=== PATIENT | female | born 1975 | race Caucasian/White ===

== ENCOUNTER 2023-09-06 18:44 | Inpatient (IN) ==
--- NOTE | 2023-09-06 18:52 | ED Triage Note ---
Date of Service September 06, 2023 Provider in Triage Author: Aixa Worley History of Present Illness This patient was briefly evaluated while in triage. An abbreviated physical exam was performed. This patient is a 47-year-old Female who presents to the ED for evaluation of palpitations. Pt. states 7-8 years ago, had similar symptoms. Notes "my heart rate has been irregular and fast." States these evening, approximately 1 hour ago, developed palpitations and felt that her heart rate was too fast. States she is feeling lightheaded. States she was given medication to help when this happens, but the medication is . Did see digital performance analyst 8 years ago. Believes medication to have been metoprolol and another but uncertain of the name. Physical Exam VITALS: Vitals are noted on the nurse's note and reviewed by myself. GENERAL: This is a 47 year old female, in no acute distress, nondiaphoretic, well-developed well-nourished. SKIN: No obvious rashes, edema, erythema HEAD: Normocephalic atraumatic. EYES: Conjunctivae without injection, sclerae without icterus. NECK: No JVD. LUNGS: No retractions or accessory muscle use. MUSCULOSKELETAL: Normal gait. NEURO: Patient was alert and oriented to person place and time. No focal neurological deficits. Initial orders for labs and / or imaging were placed and patient was placed in the waiting area until a bed is available. Please see further documentation for the full ED course.
[2023-09-06] MEDS: dilTIAZem HCl 5 MG/ML 5 ML VIAL IV ONE ×2 (19:19→19:31)
[2023-09-06] MEDS: SODIUM CHLORIDE 0.9% 1,000 ML IV STA (19:20)
[2023-09-06] MEDS: LORazepam 1 MG TAB SL STA (19:30)
[2023-09-06] MEDS: ASPIRIN 81 MG CHEW PO STA (19:30)
[2023-09-06] MEDS: dilTIAZem HCl 5 MG/ML 5 ML VIAL IV STA ×2 (19:30→19:31)
[2023-09-06] MEDS: LORazepam 1 MG TAB ONE (19:32)
[2023-09-06 19:37] LABS: Basophils # (auto) 0.05 K/uL (0.00-0.20); Basophils % (auto) 0.5 %; Eosinophils # (auto) 0.09 K/uL (0.00-0.50); Hematocrit (blood only) 46.5 % (37.0-47.0); Hemoglobin 15.8 g/dl (12.0-16.0); Immature Granulocytes # (auto) 0.04 K/uL (0.01-0.20); Immature Granulocytes % (auto) 0.4 %; Lymphocytes # (auto) 3.41 K/uL (1.20-3.40); Lymphocytes % (auto) 37.3 %; Mean Corpuscular Hemoglobin 31.2 pg (25.0-34.0); Mean Corpuscular Volume 91.7 fL (80.0-100.0); Mean Platelet Volume 8.7 fL (9.4-12.4); Monocytes # (auto) 0.86 K/uL (0.11-0.59); Monocytes % (auto) 9.4 %; Neutrophils # (auto) 4.69 K/uL (1.40-6.50); Neutrophils % (auto) 51.4 %; Platelet Count 355 K/uL (130-400); RDW Coefficient of Variation 12.5 % (11.5-14.5); RDW Standard Deviation 41.8 fL (36.4-46.3); Red Blood Count 5.07 M/uL (4.20-5.40); White Blood Count 9.14 K/ul (4.8-10.8)
[2023-09-06 19:43] LABS: Appearance Urine Clear (Clear); Bacteria Urine Automated Negative (Negative); Bilirubin Urine Negative (Negative); Blood Urine 1+ (Negative); Cast Urine Automated 0 /lpf (0-5); Color Urine Yellow; Epithelial Cell Urine Auto 0-5 /lpf (0-5); Glucose Urine UA Negative (Negative); Ketones Urine Negative (Negative); Leukocyte Esterase Urine Negative (Negative); Nitrite Urine Negative (Negative); Protein Urine Negative (Negative); RBC Urine Automated 0-4 /hpf (0-4); Specific Gravity Urine 1.004 (1.000-1.030); Urobilinogen Urine Negative (Negative); WBC Urine Automated 0 /hpf (0-5)
[2023-09-06] MEDS: dilTIAZem HCL 125 MG in DEXTROSE 5% 100 ML IV SCH (19:52)
[2023-09-06 19:55] LABS: Albumin Globulin Ratio 1.5 (0.9-2); Albumin Level 4.8 gm/dl (3.4-5.0); BUN Creatinine Ratio 12.5 (10-20); Bilirubin,Total 1.1 mg/dl (0.2-1.0); Calcium 9.8 mg/dl (8.6-10.3); Creatinine Clr Calc Pharmacy 77.2 ml/min; Est GFR (African American) 82.2 ml/min; Est GFR (Non-African American) 70.9 ml/min; Globulin 3.1 gm/dl (2.5-4.0); Magnesium 2.1 mg/dl (1.7-2.4); Potassium 3.8 mmol/L (3.5-5.1); Total Protein 7.9 gm/dl (6.0-8.3)
[2023-09-06 19:57] LABS: Pregnancy Test, Serum Negative (Negative)
[2023-09-06 20:01] LABS: Troponin I High Sensitivity 5.5 pg/ml (0-14)
[2023-09-06 20:05] LABS: D Dimer < 190 ug/L FEU (0-500); Partial Thromboplastin Ratio 1.1; Partial Thromboplastin Time 32 Seconds (21-31)
[2023-09-06 20:10] LABS: Thyroid Stimulating Hormone 1.11 uIu/ml (0.300-4.500)
--- NOTE | 2023-09-06 22:08 | Emergency Department Note ---
History of Present Illness General Chief Complaint: Arrhythmia/Palpitations Stated Complaint: HEART ISSUES, Time Seen by Provider: 09/06/23 19:10 History of Present Illness Provider Complaint: + rapid heart beat and + palpitations Onset (ago): 1 day(s) Duration: + Constant Severity: similar to previous episodes Context: + occurred during rest and + other (Patient reports she has been under a lot of); no recent drug use Arrhythmia history: + atrial fibrillation (Remote history 8 years ago. Not on any medications for. Was prescribed metoprolol in case it ever occurred again but never used in the last 8 years ago.); no on anti-coagulants Associated symptoms: + near-syncope; no chest pain, no shortness of breath, no syncope, no nausea, no vomiting, no anxiety, no diaphoresis or no cough Home Medications Medication Instructions Recorded Confirmed Type levonorgestrel 21 mcg/24 hours (8 1 device intrauterine UD 06/05/19 09/06/23 History yrs) 52 mg intrauterine device (Mirena) Allergies Allergy/AdvReac Type Severity Reaction Status Date / Time No Known Allergies Allergy Verified 08/22/19 11:48 Past Med/Surg History Medical History (Updated 09/06/23 @ 22:49 by Serjio Dickson MD) History of atrial fibrillation X 1 EPISODE 2016 - followed w/ Dr. Sood x 1 year and then discharged; no issues since. believes r/t stress. no current medications Lipoma Surgical History S/P wisdom tooth extraction Family History Father Atrial fibrillation Other No family history of adverse response to anesthesia Denies family history of Ovarian cancer Breast cancer Colorectal cancer Uterine cancer Social History Smoking Status: Never smoker Second Hand Exposure: No; Do You Dip or Chew Tobacco: No; Hx Alcohol Use: Yes Hx Substance Use: No Preferred Language: Hong Konger Communication Ability: Effective Regulatory Scientist Required: No Beliefs That Will Affect Care: None marital status: Current Living Situation: Spouse current occupational status: employed current occupation: [employer] Feels Safe at Home: Yes Diet: regular Assistive Devices: None Physical Exam 2 Vital Signs: Vital Signs - 24 hr 09/06/23 18:50 09/06/23 19:22 09/06/23 19:40 Temperature 36.6 C Temperature Source Temporal Artery Sc an Pulse Rate 83 171 H Pulse Rate [Apical ] Respiratory Rate 18 Respiratory Effort / Characteristics Non-Labored Sponta neous Respiratory Depth Normal Respiratory Patter n Regular Blood Pressure 116/67 Blood Pressure [Ri ght Arm] Blood Pressure Bernadette n 83 Blood Pressure Bernadette n [Right Arm] Blood Pressure Pos ition Sitting Pulse Oximetry 99 Oxygen Delivery Me thod Room Air Room Air Oxygen Flow Rate 96 Sepsis Recent Feve r Within 48 Hours No Sepsis New/Unexpla ined Change in Men priya Status No Sepsis Action Take n by Nursing No Action Required 09/06/23 19:40 Temperature Temperature Source Pulse Rate Pulse Rate [Apical ] 110 H Respiratory Rate 12 Respiratory Effort / Characteristics Respiratory Depth Respiratory Patter n Blood Pressure Blood Pressure [Ri ght Arm] 109/72 Blood Pressure Bernadette n Blood Pressure Bernadette n [Right Arm] 84 Blood Pressure Pos ition Pulse Oximetry 98 Oxygen Delivery Me thod Room Air Oxygen Flow Rate Sepsis Recent Feve r Within 48 Hours Sepsis New/Unexpla ined Change in Men priya Status Sepsis Action Take n by Nursing Physical Exam: Physical Exam GENERAL: oriented to person, place, and time. appears well-developed and well- nourished. HENT: Exam performed. - Head: Normocephalic and atraumatic. EYES: Conjunctivae and EOM are normal. Right eye exhibits no discharge. Left eye exhibits no discharge. No scleral icterus. NECK: Normal range of motion. Neck supple. No JVD present. CV: Tachycardia rate, irregular rhythm, normal heart sounds and intact distal pulses. There is no peripheral edema. Palpable radial pulses bue. PULM/CHEST: Effort normal and breath sounds normal. No respiratory distress. No stridor. no wheezes. no rales. ABD: The abdomen is soft. There is no tenderness. NEURO: Motor and sensation grossly intact. SKIN: Skin is warm and dry. He is not diaphoretic. PSYCH: normal mood and affect. Behavior is normal. Judgment and thought content normal. Course Course 1909: The patient was evaluated in room B4. A complete history and physical exam was performed Cardiac monitoring: An order was placed for continuous cardiac monitoring. The monitor shows a rate of 170-190 with atiral fibrilation rhythm interpreted by me Large-bore IV access was obtained and the patient was started on IV fluid normal saline bolus. Patient was given Cardizem 20 mg IV bolus which improved the patient's atrial fibrillation with a rate to 150-170. Patient was given aspirin and Ativan given her anxiety and increased caffeine consumption. Repeat bolus of IV Cardizem was given to the patient of 25 mg which improved her ventricular rate to 110-130. Patient was started on Cardizem drip. 2043: Vital signs stable on Cardizem drip. Labs and imaging within normal limits including negative troponin and D-dimer. Patient be admitted to the [facility] team Dr. Singer's team notified. Administered Medications Diltiazem HCl 125 mg/ Dextrose 125 mls @ 5 mls/hr IV .Q24H [facility]; Protocol Stop: 10/06/23 19:29 Last Titration: 09/06/23 22:09 Dose: 15 mg/hr, 15 mls/hr Documented By: OPAL Co-signed By: ADAL Titration: 09/06/23 20:57 Dose: 10 mg/hr, 10 mls/hr Documented By: OPAL Co-signed By: ADAL Admin: 09/06/23 19:52 Dose: 5 mg/hr, 5 mls/hr Documented By: OPAL Co-signed By: ROSE Discontinued Medications Aspirin (Aspirin 81 Mg Chew) 324 mg PO NOW STA Stop: 09/06/23 19:27 Last Admin: 09/06/23 19:30 Dose: 324 mg Documented By: OPAL Diltiazem HCl (Diltiazem Hcl 5 Mg/Ml 5 Ml Vial) Confirm Administered Dose 25 mg IV .STK-MED ONE Stop: 09/06/23 19:16 Last Increment: 09/06/23 19:19 Dose: 20 mg Documented By: MICHAEL Co-signed By: OPAL Diltiazem HCl (Diltiazem Hcl 5 Mg/Ml 5 Ml Vial) Confirm Administered Dose 25 mg IV .STK-MED ONE Stop: 09/06/23 19:23 Last Admin: 09/06/23 19:31 Dose: Not Given Documented By: MICHAEL Diltiazem HCl (Diltiazem Hcl 5 Mg/Ml 5 Ml Vial) 25 mg IV NOW STA Stop: 09/06/23 19:27 Last Admin: 09/06/23 19:30 Dose: 25 mg Documented By: OPAL Co-signed By: MICHAEL Diltiazem HCl (Diltiazem Hcl 5 Mg/Ml 5 Ml Vial) 20 mg IV NOW STA Stop: 09/06/23 19:27 Last Admin: 09/06/23 19:31 Dose: Not Given Documented By: MICHEAL Sodium Chloride (Nss) 1,000 mls @ 999 mls/hr IV .Q1H1M STA Stop: 09/06/23 19:52 Last Infusion: 09/06/23 21:03 Dose: Infused Documented By: Admin: 09/06/23 19:20 Dose: 999 mls/hr Documented By: MICHAEL Lorazepam (Lorazepam 1 Mg Tab) 1 mg SL NOW STA Stop: 09/06/23 19:27 Last Admin: 09/06/23 19:30 Dose: 1 mg Documented By: OPAL Lorazepam (Lorazepam 1 Mg Tab) Confirm Administered Dose 1 mg .ROUTE .STK-MED ONE Stop: 09/06/23 19:29 Last Admin: 09/06/23 19:32 Dose: Not Given Documented By: MICHAEL Medical Decision Making Laboratory Data Attestation: I reviewed the patient's lab results. 09/06/23 19:18 09/06/23 19:18 Lab Results 09/06/23 Range/Units 19:18 WBC 9.14 (4.8-10.8) K/ul RBC 5.07 (4.20-5.40) M/uL Hgb 15.8 (12.0-16.0) g/dl Hct 46.5 (37.0-47.0) % MCV 91.7 (80.0-100.0) fL MCH 31.2 (25.0-34.0) pg MCHC 34.0 (32.0-36.0) g/dL RDW Std Deviation 41.8 (36.4-46.3) fL RDW Coeff of Servando 12.5 (11.5-14.5) % Plt Count 355 (130-400) K/uL MPV 8.7 L (9.4-12.4) fL Immature Gran % (Auto) 0.4 % Neut % (Auto) 51.4 % Lymph % (Auto) 37.3 % [place] % (Auto) 9.4 % Eos % (Auto) 1.0 % Baso % (Auto) 0.5 % Neut # (Auto) 4.69 (1.40-6.50) K/uL Lymph # (Auto) 3.41 H (1.20-3.40) K/uL [place] # (Auto) 0.86 H (0.11-0.59) K/uL Eos # (Auto) 0.09 (0.00-0.50) K/uL Baso # (Auto) 0.05 (0.00-0.20) K/uL Immature Gran # (Auto) 0.04 (0.01-0.20) K/uL PT 11.0 (9.0-12.0) Seconds INR 1.0 (0.9-1.1) APTT 32 H (21-31) Seconds PTT Ratio 1.1 D-Dimer < 190 (0-500) ug/L FEU Sodium 140 (136-145) mmol/L Potassium 3.8 (3.5-5.1) mmol/L Chloride 107 (98-107) mmol/L Carbon Dioxide 24 (21-32) mmol/L Anion Gap 9 (3-11) BUN 12 (6-23) mg/dl Creatinine 0.96 (0.6-1.2) mg/dl Est Cr Clr Drug Dosing 77.2 ml/min Est GFR ( Amer) 82.2 ml/min Est GFR (Non-Af Amer) 70.9 ml/min BUN/Creatinine Ratio 12.5 (10-20) Glucose 110 H (70-99(Fasting)) mg/dl Calcium 9.8 (8.6-10.3) mg/dl Magnesium 2.1 (1.7-2.4) mg/dl Total Bilirubin 1.1 H (0.2-1.0) mg/dl AST 20 (13-39) U/L ALT 12 (7-52) U/L Alkaline Phosphatase 48 (34-104) U/L Troponin I High Sens 5.5 (0-14) pg/ml Total Protein 7.9 (6.0-8.3) gm/dl Albumin 4.8 (3.4-5.0) gm/dl Globulin 3.1 (2.5-4.0) gm/dl Albumin/Globulin Ratio 1.5 (0.9-2) TSH 1.110 (0.300-4.500) uIu/ml HCG, Qual Negative (Negative) Urine Color Yellow Urine Appearance Clear (Clear) Urine pH 7.0 (4.5-7.5) Ur Specific [place] 1.004 (1.000-1.030) Urine Protein Negative (Negative) Urine Glucose (UA) Negative (Negative) Urine Ketones Negative (Negative) Urine Blood 1+ H (Negative) Urine Nitrite Negative (Negative) Urine Bilirubin Negative (Negative) Urine Urobilinogen Negative (Negative) Ur Leukocyte Esterase Negative (Negative) Urine WBC (Auto) 0 (0-5) /hpf Urine RBC (Auto) 0-4 (0-4) /hpf U Hyaline Cast (Auto) 0 (0-5) /lpf U Epithel Cells (Auto) 0-5 (0-5) /lpf Urine Bacteria (Auto) Negative (Negative) Imaging Data Attestation: I personally reviewed and interpreted this imaging study as follows: My Impression: Chest x-ray negative. Airway clear. No pneumothorax. No consolidation. No cardiomegaly or cephalization.. No free air under the diaphragm. No fractures of the skeletal structures. ECG Data Attestation: I personally reviewed and interpreted this ECG as follows: Additional Comments: EKG #1 at 1908: Atrial fibrillation with a rate of 174. QRS [address] elevation or ST depression. EKG #2 at 1923 status post Cardizem 20 mg IV bolus: Atrial fibrillation with a rate of 168. QRS [address] elevation or ST depression. EKG #3 at 1929 status post repeat Cardizem 25 mg IV bolus: Atrial fibrillation with a rate of 132. QRS [address] elevation or ST depression EKG #4 at 1930: Atrial fibrillation with rate 112 QRS [address] elevation or ST depression MDM Narrative 1910: The patient was evaluated in room B4. A complete history and physical exam was performed Cardiac monitoring: An order was placed for continuous cardiac monitoring. The monitor shows a rate of 170-190 with atiral fibrilation rhythm interpreted by me Large-bore IV access was obtained and the patient was started on IV fluid normal saline bolus. Patient was given Cardizem 20 mg IV bolus which improved the patient's atrial fibrillation with a rate to 150-170. Patient was given aspirin and Ativan given her anxiety and increased caffeine consumption. Repeat bolus of IV Cardizem was given to the patient of 25 mg which improved her ventricular rate to 110-130. Patient was started on Cardizem drip. 2043: Vital signs stable on Cardizem drip. Labs and imaging within normal limits including negative troponin and D-dimer. Patient be admitted to the [facility] team Dr. Singer's team notified. Impression & Plan Atrial fibrillation with rapid ventricular response Critical Care Time Critical Care Time: Yes Total Critical Care Time: 64 I have personally spent greater than 64 minutes of critical care time in the direct management of this patient. This includes bedside care, interpretation of diagnostic studies, and testing, discussion with consultants, patient, and family members, and other required patient management activities. This 64 minutes is in excess of all separately billable procedures. Discharge Plan Visit Data Chief Complaint: Arrhythmia/Palpitations Stated Complaint: HEART ISSUES, ED Provider: Serjio Dickson Discharge Problem: Atrial fibrillation with rapid ventricular response Patient Disposition: Admitted As Inpatient Discharge Instructions Interventions: ED Discharge Assessment Last Done: 09/06/23 22:35
--- NOTE | 2023-09-06 22:17 | History & Physical Report ---
Date of Service September 06, 2023 Assessment & Plan (1) Atrial fibrillation with rapid ventricular response: Plan: Patient in a fib with RVR likely triggered by stress/caffeine. CXR per my read normal. EKG with a fib with RVR. Now on dilt drip - up titrating. CHADSVASC 1 (female). Will start on heparin gtt as patient may require cardioversion. Could consider amiodarone gtt if rates continue to be elevated. Would consult cardiology if unable to obtain rate control with pharmacologic interventions. heparin gtt dilt gtt Mg > 2, K > 4 ECHO ordered Plan Code status: full DVT ppx: hep gtt FENGI: regular Dispo: PCU/Tele History of Present Illness Chief Complaint: palpitations Primary Care Provider: Avani Gilbert 47 y/o female with a PMHx of paroxysmal a fib not on rate control or anticoagulation. Patient consumed a significant amount of caffeine today and began having palpitations. She tried holding her breath which has helped in the past, but palpitations continued prompting her presentation to the ED. Patient was found to be in a fib with RVR with rates in the 170s-190s. Given dilt push 25 mg x 2 and started on dilt gtt. Admission called for further management of a fib with RVR. Upon my interview patient reports continued palpitations, but less notable than at presentation. Rates in the 100s-140s. No CP, SOB, nausea, vomiting, diarrhea, constipation, calf pain, abdominal pain. Did have dizziness when rates were extremely high. This has resolved with better rate control. Patient has been in the a fib with RVR in the past about 8 years ago. Believes this was triggered by stress/caffeine. She was not started on medication as symptoms resolved. She has had a few episodes when waking from sleep where her heart is transiently racing. These have previously resolved with breath holding. Allergies Allergy/AdvReac Type Severity Reaction Status Date / Time No Known Allergies Allergy Verified 08/22/19 11:48 Home Medications Medication Instructions Recorded Confirmed Type levonorgestrel 21 mcg/24 hours (8 1 device intrauterine UD 06/05/19 09/06/23 History yrs) 52 mg intrauterine device (Mirena) flecainide 150 mg tablet 300 mg (2 x 150 mg) PO DAILY PRN 09/07/23 Rx atrial fibrillation #14 tabs metoprolol succinate 50 mg 50 mg PO DAILY PRN atrial 09/07/23 Rx tablet,extended release 24 hr fibrillation #7 tabs Past Med/Surg History Medical History (Updated 09/06/23 @ 22:49 by Serjio Dickson MD) History of atrial fibrillation X 1 EPISODE 2016 - followed w/ Dr. Sood x 1 year and then discharged; no issues since. believes r/t stress. no current medications Lipoma Surgical History S/P wisdom tooth extraction Family History Father Atrial fibrillation Other No family history of adverse response to anesthesia Denies family history of Ovarian cancer Breast cancer Colorectal cancer Uterine cancer Social History Smoking Status: Never smoker Second Hand Exposure: No; Do You Dip or Chew Tobacco: No; Hx Alcohol Use: Yes Hx Substance Use: No Preferred Language: German Communication Ability: Effective Electrical Maintenance Technician Required: No Beliefs That Will Affect Care: None marital status: Current Living Situation: Alone current occupational status: employed current occupation: [employer] Feels Safe at Home: Yes Diet: regular Assistive Devices: None Review of Systems 2 Review of Systems: See HPI Physical Exam 2 Physical Exam: Gen: well appearing female patient in NAD HEENT: AT NC MMM Resp: CTAB no wheezing no increased work of breathing CV: irregularly irregular rate/rhythm, clinically well perfused, peripheral pulses palpable but irregular - radial and DP Abd: +BS soft, non-tender, non-distended MSK: no obvious deformities Skin: no rashes or bruising Neuro: alert and oriented Psych: appropriate mood and affect Results & Data Results & Data Vital Signs (Past 12 Hours) Vital Signs Temp Pulse Pulse Resp BP BP Pulse Ox 09/06/23 19:40 110 H 12 109/72 98 09/06/23 19:40 09/06/23 19:22 171 H 09/06/23 18:50 36.6 C 83 18 116/67 99 O2 Del Method O2 Flow Rate 09/06/23 19:40 Room Air 09/06/23 19:40 Room Air 96 09/06/23 19:22 09/06/23 18:50 Room Air Laboratory Results 09/06/23 19:18 09/06/23 19:18 Supervising Physician Co-Signing Physician Notes Attending addendum: I have physically seen this patient, have supervised the medical residents activities, and agree with the H&P unless as otherwise noted. Assessment and Plan: Atrial fibrillation with RVR- EKG with heart rate 174 The patient will be admitted to telemetry for serial cardiac enzymes, serial EKG's, cardiac rhythm monitoring and a 2-D echocardiogram with Dopplers. Reports a significant increase in caffeine intake and stress Received diltiazem IV pushes and started on diltiazem drip by the ED, And will continue overnight Start heparin drip low-dose per protocol Target magnesium greater than 2 and potassium greater than 4 Consult cardiology Resident Activity Tracking Resident Involvement: Resident Care Provided Care Provided: Adult Hospital Medicine
[2023-09-06] MEDS ORDERED: Heparin IV Adult Wt-Based Low-Dose *NO* INITIAL Bolus Protocol IV STA (22:37)
[2023-09-06] MEDS ORDERED: POLYETHYLENE (MIRALAX) 17 GM PACK PO PRN (22:37)
[2023-09-06] MEDS ORDERED: ALUMINUM/MAGNESIUM SUSP 30 ML UDC PO PRN (22:37)
[2023-09-06] MEDS ORDERED: ACETAMINOPHEN 325 MG TAB PO PRN (22:37)
[2023-09-06] MEDS: STAT IV Infusion **Titration per Protocol STA (22:52)
[2023-09-06] MEDS: HEPARIN SODIUM/DEXTROSE 25,000 UNITS/500 ML BAG IV SCH (23:11)
[2023-09-06 23:32] LABS: ANTI-Xa, UFH(UnfractionatedHep < 0.10 IU/ml (0.3-0.7)
--- NOTE | 2023-09-07 08:22 | XRay Report ---
XR chest 1V portable CLINICAL HISTORY: Dysrhythmia. COMPARISON STUDY: Chest radiograph August 22, 2015. FINDINGS: Lung volumes are normal. Lungs are clear. There is no pneumothorax or pleural effusion. Car diac size is normal. Mediastinal contours are normal. There is no evidence for pulmonary edema. IMPRESSION: No acute cardiopulmonary findings. ACT 112: Negative or not required by law. Electronically signed by: Seferino Zepeda M.D. 09/07/2023 8:20 AM
[2023-09-07 08:49] LABS: ANTI-Xa, UFH(UnfractionatedHep 0.12 IU/ml (0.3-0.7)
--- NOTE | 2023-09-07 09:28 | Electrocardiogram Report ---
Test Reason : Blood Pressure : / mmHG Vent. Rate : 174 BPM Atrial Rate : 000 BPM P-R Int : 000 ms QRS Dur : 072 ms QT Int : 274 ms P-R-T Axes : 000 042 048 degrees QTc Int : 466 ms Atrial fibrillation with rapid ventricular response with premature ventricular or aberrantly conducte d complexes Nonspecific ST abnormality Abnormal ECG When compared with ECG of 22-AUG-2015 21:17, Nonspecific T wave abnormality no longer evident in Inferior leads Confirmed by Paul Haq ([id number]) on 09/07/2023 9:27:44 AM Referred By: REFERRED SELF Confirmed By:Pablito Haq
--- NOTE | 2023-09-07 09:28 | Electrocardiogram Report ---
Test Reason : Blood Pressure : / mmHG Vent. Rate : 168 BPM Atrial Rate : 000 BPM P-R Int : 000 ms QRS Dur : 076 ms QT Int : 264 ms P-R-T Axes : 000 045 021 degrees QTc Int : 441 ms Atrial fibrillation with rapid ventricular response Nonspecific ST abnormality Abnormal ECG When compared with ECG of 06-SEP-2023 19:08, (unconfirmed) No significant change was found Confirmed by Paul Haq ([id number]) on 09/07/2023 9:27:50 AM Referred By: REFERRED SELF Confirmed By:Pablito Haq
--- NOTE | 2023-09-07 09:35 | Electrocardiogram Report ---
Test Reason : Blood Pressure : / mmHG Vent. Rate : 088 BPM Atrial Rate : 088 BPM P-R Int : 144 ms QRS Dur : 086 ms QT Int : 408 ms P-R-T Axes : 046 030 052 degrees QTc Int : 493 ms Normal sinus rhythm Prolonged QT Abnormal ECG When compared with ECG of 06-SEP-2023 19:29, (unconfirmed) Sinus rhythm has replaced Atrial fibrillation Vent. rate has decreased BY 44 BPM Confirmed by Paul Haq ([id number]) on 09/07/2023 9:35:28 AM Referred By: REFERRED SELF Confirmed By:Pablito Haq
--- NOTE | 2023-09-07 09:36 | Electrocardiogram Report ---
Test Reason : Blood Pressure : / mmHG Vent. Rate : 132 BPM Atrial Rate : 000 BPM P-R Int : 000 ms QRS Dur : 078 ms QT Int : 274 ms P-R-T Axes : 000 049 029 degrees QTc Int : 405 ms Atrial fibrillation with rapid ventricular response Abnormal ECG When compared with ECG of 06-SEP-2023 19:23, (unconfirmed) No significant change was found Confirmed by Paul Haq ([id number] on 09/07/2023 9:36:05 AM Referred By: REFERRED SELF Confirmed By:Pablito Haq
--- OUTSIDE RECORDS SUMMARY | 2023-09-07 13:20 | External Medical Summary | Summary of Care ---
Author Name Unknown Organization [facility] Address [address] [place] [address] Phone [phone] Care Team Providers Care Mathematics Academic Chair Name Role Phone Unavailable Primary Care Provider Unavailabl e Encounter Details Date Type Department Care Team (Late st Contact Info) Description 06/05/2023 Telephone Gynecology/Obstetrics [facility] [address] [place] [address] Anibal Calvert MD [address] [place] [address] Allergies No known active allergiesdocumented as of this encounter (statuses as of 06/05/2023) Medications Medication Sig Dispensed Refills Start Date End Date Status levonorgestrel (MIRENA, 52 MG,) 20 MCG/24HR IUDIndications:insert ed 10/2013 Insert 1 Each into uterus once. Indications: inserted 10/2013 0 Active documented as of this encounter (statuses as of 06/05/2023) Resolved Problems Problem Noted Date Diagnosed Date Resolved Date Encounter for supervision of other normal 12/23/2010 09/13/2011 Overview: ICD-10 update of inactive term h/o EXCESS GRTH-UNSPEC 12/23/2010 09/13/2011 Overview: Macrosomia x 2; will do early glucola-pt called with update of previous weights- [id number]; and 8lbs 12oz-not considered macrosomia as thought before but pt agreeable to complete early glucola due to large babies and fam. H/o DM documented as of this encounter (statuses as of 06/05/2023) Social History Tobacco Use Types Packs/Day Years Used Date Smoking Tobacco: Never Smokeless Tobacco: Never Alcohol Use Standard Drinks/Week Comments Yes 0 (1 standard drink = 0.6 oz pur e alcohol) occasionally Sex and Gender Information Value Date Recorded Sex Assigned at Not on file Gender Identity Not on file Sexual Orientation Not on file documented as of this encounter Miscellaneous Notes * Telephone Encounter - Elle Yeboah RN - 06/05/2023 2:17 PM EST Pt called the office asking when she last had her visit to have an IUD removed. Discussed 2013 but she feels she had one done after that. She thinks she had one removed and replaced the same day. Advised that she was seen in 03/2019 to discuss IUD but due to her insurance being [facility], she decided tonot be seen at [facility]. Pt feels that she was last seen here. I advised pt that I was unable to see that. Pt still desires appt to establish again and will decide if she had an IUD done elsewhere and if so, may not be due if Mirena for contraception (8 yrs). Pt will call back if she can not find this info. Now has Cap Blue. No longer [facility]. documented in this encounter Plan of Treatment Upcoming Encounters Date Type Department Care Team (Late st Contact Info) Description 07/31/2023 1:30 PM EST Office Visit Gynecology/Obstetrics [facility] [address] [place] [address] Anibal Calvert MD [address] [place] [address] Health Maintenance Due Date Last Done Comments Hepatitis B (1 of 3 - 3-dose series) 1976 Lipid Panel 1976 COVID-19 Vaccine (#1) 05/02/1977 Depression Screening 1988 HIV Screening 10/31/1991 Hepatitis C Screening 1994 DTaP,Tdap,and Td Vaccines (1 - Tdap) 10/31/1995 HPV/Co-Test 2006 Mammogram 2016 Cervical Cancer Screening 05/30/2020 Pap Smear 05/30/2020 05/30/2017, 05/19, 10/11/2013, Additional history exists Cologuard 2021 Colonoscopy 2021 Colorectal Cancer Screening 2021 Fecal Occult Blood Test 2021 Sigmoidoscopy 2021 Influenza Vaccine (FLU shot) (#1) 2023 GARDASIL-HPV IMMUNIZATION SERIES Aged Out No longer eligible based on patient's age to complete this topic MENINGOCOCCAL (MENACTRA/MENVEO) Aged Out No longer eligible based on patient's age to complete this topic Pneumococcal Vaccine: Pediatrics (0 to 5 Years) and At-Risk Patients (6 to 64 Years) Aged Out No longer eligible based on patient's age to complete this topic documented as of this encounter Medical Devices Not on filedocumented as of this encounter
--- OUTSIDE RECORDS SUMMARY | 2023-09-07 13:20 | External Medical Summary ---
Author Name Unknown Address Unknown Organization K01:LABORATORY [address] [address] Laboratory Report Ordering Provider Test Date Status TONIO BROOKS 07/31/2023 15:02:00 Final Observation Date Value Abnormality Reference (Units ) Status Human papilloma virus E6+E7 mRNA [Presence] in Cervix by TEODORA with probe detection 07/31/2023 15:02:00 Negative Not Applicable Final No high/intermediate-risk Hu man Papillomavirus (HPV E6/E7 messenger RNA) detected by nucleic acid amplification.

This assay looks for high/intermediate risk Human Papillomavirus (HPV E6/E7 messenger RNA) by nucleic acid amplification. This assay includes the qualitative detection of HPV types 16,18,31,33,35,39,45,51,52,56,58,59,66 and 68 from cervical specimens.
This assay has been FDA cleared for Thin prep collection vials.
This assay has not been approved for use as a primary screening test for HPV and should be tested in conjunction with a PAP screen.
If collected utilizing a Surepath vial, the collection and specimen preparation of this test was developed, and its performance characteristics determined by [employer]. It has not been cleared or approved by the U.S. Food and Drug Administration (FDA). The FDA has determined that such clearance or approval is not necessary.
This assay has been performed at [email or web address], [address] [place] [address], [place]. [address]. Performing Location LABORATORY [address] [facility] [address]
--- OUTSIDE RECORDS SUMMARY | 2023-09-07 13:20 | External Medical Summary | Summary of Care ---
Author Name Unknown Organization [facility] Address [address] [facility] [address] Phone [phone] Care Team Providers Care Health Informatics Advisor Name Role Phone Unavailable Primary Care Provider Unavailabl e Reason for Visit * Reason Comments Clay Hoister New Encounter Details Date Type Department Care Team (Late st Contact Info) Description 07/31/2023 1:30 PM EST Office Visit Gynecology/Obstetric s [facility] [address] [place] [address] Anibal Calvert MD [address] [facility] [place] [address] Screening for malignant neoplasm of cervix* Allergies No known active allergiesdocumented as of this encounter (statuses as of 07/31/2023) Medications Medication Sig Dispensed Refills Start Date End Date Status levonorgestrel (MIRENA, 52 MG,) 20 MCG/24HR IUDIndications:inserte d 10/2013 Insert 1 Each into uterus once. 0 Active documented as of this encounter (statuses as of 07/31/2023) Active Problems No known active problems documented as of this encounter (statuses as of 07/31/2023) Resolved Problems Problem Noted Date Diagnosed Date Resolved Date Encounter for supervision of other normal 12/23/2010 09/13/2011 Overview: ICD-10 update of inactive term h/o EXCESS GRTH-UNSPEC 12/23/2010 09/13/2011 Overview: Macrosomia x 2; will do early glucola-pt called with update of previous weights- [id number]; and 8lbs 12oz-not considered macrosomia as thought before but pt agreeable to complete early glucola due to large babies and fam. H/o DM documented as of this encounter (statuses as of 07/31/2023) Social History Tobacco Use Types Packs/Day Years Used Date Smoking Tobacco: Never Smokeless Tobacco: Never Alcohol Use Standard Drinks/Week Comments Yes 0 (1 standard drink = 0.6 oz pur e alcohol) occasionally Hunger Vital Sign Answer Date Recorded Within the past 12 months, y ou worried that your food would run out before you got the money to buy more. Never true 07/31/19 24 Within the past 12 months, t he food you bought just didn't last and you didn't have money to get more. Never true 07/31/2023 Sex and Gender Information Value Date Recorded Sex Assigned at Female 07/31/2023 12:48 PM EST Gender Identity Female 07/31/2023 12:48 PM EST Sexual Orientation Straight 07/31/2023 12 :48 PM EST Job Start Date Occupation Industry Not on file Not on file Not on file documented as of this encounter Last Filed Vital Signs Vital Sign Reading Time Taken Comments Blood Pressure 122/84 07/31/2023 1:33 PM EST Pulse - - Temperature - - Respiratory Rate - - Oxygen Saturation - - Inhaled Oxygen Concentration - - Weight - - Height 165.1 cm (5' 5") 07/31/2023 1:33 PM EST Body Mass Index - - documented in this encounter Progress Notes * Anibal Calvert MD - 07/31/2023 1:53 PM EST The patient is a 47 year old with an No LMP recorded. Patient has had an implant. who presents for annual gynecological examination. The patient is not sexually active. Method of Contraception: IUD, Mirena for 2 years. The patient last pap: was normal, was abnormal: . There has been no changes to the patient's medical history since the patient was last seen . 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 No current facility-administered medications for this visit. Social History Socioeconomic History Marital status: Spouse name: Not on file Number of children: Not on file Years of education: Not on file Highest education level: Not on file Occupational History Not on file Tobacco Use Smoking status: Never Smokeless tobacco: Never Substance and Sexual Activity Alcohol use: Yes Comment: occasionally Drug use: No Sexual activity: Yes Partners: Male control/protection: I.U.D. Comment: Mirena Other Topics Concern Not on file Social History Narrative Not on file Social Determinants of Health Financial Resource Strain: Not on file Food Insecurity: No Food Insecurity (07/31/2023) Hunger Vital Sign Worried About Running Out of Food in the Last Year: Never true Ran Out of Food in the Last Year: Never true Transportation Needs: Not on file Physical Activity: Not on file Stress: Not on file Social Connections: Not on file Intimate Partner Violence: Not on file Housing Stability: Not on file FAMILY HISTORY:Non-contributory Review of Systems: as per HPI PHYSICAL EXAM BP 122/84 | Ht 1.651 m (5' 5") | BMI 29.15 kg/m | BSA 1.91 m HEENT:unremarkable. Neck:supple. Lungs:clear. Heart:RRR. Breasts:Inspection negative No nipple retraction or dimpling No nipple discharge or bleeding No axillary or supraclavicular adenopathy Normal to palpation without dominant masses. Abdomen:abdomen soft, non-tender, normal bowel sounds, and no masses or organomegaly. Pelvic Exam: External- normal anatomy. Vagina-pink and rugated. Cervix- pap smear performed, no cervical motion tenderness, without lesions, and non- friable. NO IUD STRING SEEN Uterus-mobile. Wzoicd-xcv-oetjzp bilaterally. Rectal-deferred. Ext: no deep calf tenderness. Neurological: grossly intact IMPRESSION: 47 year old for annual examination PLAN: The results of todays pap smear will be forwarded to the patient when available. The patient is not due for a screening mammogram. Those results will be forwarded to her when available. The importance of self monthly breast examinations in the early detection of breast disease has been discussed. The patient has received a re-newal on her . She will follow-up in one years time for an annualexamination. Addendum: Pt has IUD but no string was seen during this pelvic exam. Pt however tells me she felt string 2 month ago. We have agreed to do the ff Pt will continue to check for string, if she does not feel string by next month, pt will call office so I can order a pelvic sono for her Anibal Calvert MD cc: PCP: None documented in this encounter Nursing Notes * Radha Davidson LPN - 07/31/2023 1:39 PM EST Patient identified Belinda Marin by name and date of . Patient here for yearly exam. Complaints: none Last pap: 2017 Last Mammogram: never Last Dexa: na Last Colonoscopy: na Type of Contraception: Mirena, placed around 2019 at outside facility Pt here for chlamydia screen. no My [employer] is a way you can talk to your provider online through e-mail. May I activate it for you? ALREADY ACTIVE Do you need any refills while you are here? no Radha Lara LPN 07/31/2023 1:39 PM documented in this encounter Plan of Treatment Pending Results Name Type Priority Associated Diagnoses Date /Time DISASTER RECOVERY CONSULTANT PAP SCREEN Pathology Routine Screening for malignant neoplasm of cervix 07/31/2023 3:02 PM EST Scheduled Orders Name Type Priority Associated Diagnoses Orde r Schedule MAMMOGRAM SCREENING ELISSA BILATERAL Medical Imaging Routine Screening for malignant neoplasm of cervix Expected: 07/31/2023 (Approximate), Expires: 08/28/2024 DISASTER RECOVERY CONSULTANT PAP SCREEN Pathology Routine Screening for malignant neoplasm of cervix Expected: 07/31/2023, Expires: 08/28/2024 Health Maintenance Due Date Last Done Comments Hepatitis B (1 of 3 - 3-dose series) 1976 Lipid Panel 1976 Depression Screening 1988 HIV Screening 10/31/1991 Hepatitis C Screening 1994 DTaP,Tdap,and Td Vaccines (1 - Tdap) 10/31/1995 HPV/Co-Test 2006 Mammogram 2016 Cervical Cancer Screening 05/30/2020 Pap Smear 05/30/2020 05/30/2017, 05/19, 10/11/2013, Additional history exists Cologuard 2021 Colonoscopy 2021 Colorectal Cancer Screening 2021 Fecal Occult Blood Test 2021 Sigmoidoscopy 2021 COVID-19 Vaccine (2022- season) 2023 09/28/2020, 08/31/2020 Influenza Vaccine (FLU shot) (#1) 2023 GARDASIL-HPV [...] Not on filedocumented as of this encounter Visit Diagnoses Diagnosis Screening for malignant neoplasm of cervix- Primary Screening for malignant neoplasm of the cervix documented in this encounter
--- OUTSIDE RECORDS SUMMARY | 2023-09-07 13:20 | External Medical Summary | Summary of Care ---
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 NO IUD STRING SEEN Uterus-mobile. Njwiqo-qpc-amtxdj bilaterally. Rectal-deferred. Ext: no deep calf tenderness. [...] - 07/31/2023 1:39 PM EST Patient identified eBlinda Marin by name and date of . Patient here for yearly exam. Complaints: none Last pap: 2017 Last Mammogram: never Last Dexa: na Last Colonoscopy: na Type of Contraception: Mirena, placed around 2019 at outside facility Pt here for chlamydia screen. no My [employer] is a way you can talk to your provider online through e-mail. May I activate it for you? ALREADY ACTIVE Do you need any refills while you are here? no Radha Lara LPN 07/31/2023 1:39 PM documented in this encounter Plan of Treatment Scheduled Orders Name Type Priority Associated Diagnoses Orde r Schedule MAMMOGRAM SCREENING ELISSA BILATERAL Medical Imaging Routine Screening for malignant neoplasm of cervix Expected: 07/31/2023 (Approximate), Expires: 08/28/2024 MANAGER BANQUET PAP SCREEN Pathology Routine Screening for malignant [...] Blood Test 2021 Sigmoidoscopy 2021 COVID-19 Vaccine ( season) 2023 09/28/2020, 08/31/2020 Influenza Vaccine (FLU [...]
--- OUTSIDE RECORDS SUMMARY | 2023-09-07 13:20 | External Medical Summary | Summary of Care ---
Author Name Unknown Organization [facility] Address [address] [facility] [place] [address] Phone [phone] Care Team Providers Care Sr. 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 Encounter Details Date Type Department Care Team (Late st Contact Info) Description 07/31/2023 1:30 PM EST Office Visit Gynecology/Obstetric s [facility] [address] [place] [address] Anibal Calvert MD [address] [facility] [place] [address] Screening for malignant neoplasm of cervix* Allergies No known active allergiesdocumented as of this encounter (statuses as of 08/11/2023) Medications Medication Sig Dispensed Refills Start Date End Date Status levonorgestrel (MIRENA, 52 MG,) 20 MCG/24HR IUDIndications:inserte d 10/2013 Insert 1 Each into uterus once. 0 Active documented as of this encounter (statuses as of 08/11/2023) Active Problems No known active problems documented as of this encounter (statuses as of 08/11/2023) Resolved Problems Problem Noted Date Diagnosed Date Resolved Date Encounter for supervision of other normal 12/23/2010 09/13/2011 Overview: ICD-10 update of inactive term h/o EXCESS GRTH-UNSPEC 12/23/2010 09/13/2011 Overview: Macrosomia x 2; will do early glucola-pt called with update of previous weights- 5so09ao; and 8lbs 12oz-not considered macrosomia as thought before but pt agreeable to complete early glucola due to large babies and fam. 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 NO IUD STRING SEEN Uterus-mobile. Ogjfxu-rja-wnbuqw bilaterally. Rectal-deferred. Ext: no deep calf tenderness. [...] Pt here for chlamydia screen. no My [employer] is a way you can talk to [...] of cervix Expected: 07/31/2023 (Approximate), Expires: 08/28/2024 Health Maintenance Due Date Last Done Comments Lipid Panel 1976 Depression Screening 1988 HIV Screening 10/31/1991 Hepatitis C Screening 1994 DTaP,Tdap,and Td Vaccines (1 - Tdap) 10/31/1995 Hepatitis B (1 of 3 - 19+ 3-dose series) 10/31/1995 Mammogram 2016 Cologuard 2021 Colonoscopy 2021 Colorectal Cancer Screening 2021 Fecal Occult Blood Test 2021 Sigmoidoscopy 2021 COVID-19 Vaccine ( season) 2023 09/28/2020, 08/31/2020 Influenza Vaccine (FLU shot) (#1) 2023 Pap Smear 07/31/2026 07/31/2023, 05/19, 05/30/2017, Additional history exists Cervical Cancer Screening 07/31/2028 HPV/Co-Test 07/31/2028 07/31/2023 GARDASIL-HPV IMMUNIZATION SERIES Aged Out No longer [...] Not on filedocumented as of this encounter Procedures Procedure Name Priority Date/Time Associated Diagnosis Comments HUMAN PAPILLOMA VIRUS, PROBE Routine 07/31/2023 3:02 PM EST Screening for malignant neoplasm of cervix RICE DRYER MECHANIC PAP SCREEN Routine 07/31/2023 3:02 PM EST Screening for malignant neoplasm of cervix documented in this encounter Results * HUMAN PAPILLOMA VIRUS, PROBE (07/31/2023 3:02 PM EST) Human Papilloma Virus Result Negative Not Applicable 08/09/2023 10:16 AM EST LABORATORY [facility] Comment: No high/intermediate-risk Human Papillomavirus (HPV E6/E7 messenger RNA) detected by [...] developed, and its performance characteristics determined by [facility] [employer]. It has not been cleared or approved by the U.S. Food and Drug Administration (FDA). The FDA has determined that such clearance or approval is not necessary. This assay has been performed at [facility], [address] [place] [address]. [id number]. Pap Test Specimen from wound / Unknown 07/31/2023 3:02 PM EST 08/01/2023 6:20 AM EST Anibal Calvert MD LAB MICRO - GENERAL [place] [address] * RICE DRYER MECHANIC PAP SCREEN (07/31/2023 3:02 PM EST) Final Diagnosis A. Cervix, SurePath Pap test: Adequacy: Satisfactory for evaluation; no transformation zone component identified. Interpretation: Negative for Intraepithelial lesion or malignancy ([facility]). AUTOMATED REVIEW: Focal Point computerized screening device (quintile 5, review). 08/09/2023 10:16 AM EST LAB[facility] Performing Labs Sustainment Logistics Analyst screening performed at [facility] ([facility] [address] [place] [id number]. 08/09/2023 10:16 AM EST LAB[facility]AT[facility] Gross Description A. Cervix. SurePath vial received labeled with the patient's identification. 08/09/2023 10:16 AM EST LABORATORY [facility] EDUCATIONAL NOTE: The Pap test (thin-layer cervical screening specimen) is a screening test that aids in the detection of cervical cancer and cancer precursors. Both false positive and false negative results can occur. The test should be used at regular intervals (as per the ASCCP guidelines) and positive results should be confirmed before definitive therapy. Discrepancies between the Pap test findings and clinical impressions should be resolved with diagnostic tests such as colposcopy and biopsy. 08/09/2023 10:16 AM EST LABORATORY [facility] Case Report Gynecologic Cytology Report Case: [id number] Authorizing Provider: Anibal Calvert MD Collected: 07/31/2023 03:02 PM Ordering Location: Gynecology/Obstetr ics Received: 07/31/2023 03:02 PM [facility] First Screen: Nicole Gusman, CT(ASCP) Specimen: SurePath Pap test, Cervix 08/09/2023 10:16 AM EST LABORATORY [facility] PAP Indication for Procedure: Routine Pap 08/09/2023 10:16 AM EST LABORATORY [facility] PAP Previous Cancer: None 08/09/2023 10:16 AM EST LABORATORY [facility] HPV Permissions: HPV Regardless (Including cotest) 08/09/2023 10:16 AM EST LABORATORY [facility] PAP Contraceptive History: IUD 08/09/2023 10:16 AM EST LABORATORY [facility] PAP Menstrual Status: Pre-menopausal 08/09/2023 10:16 AM EST LABORATORY [facility] Pap Test Specimen from wound / Unknown 07/31/2023 3:02 PM EST 07/31/2023 3:02 PM EST Anibal Calvert MD LAB CYTOLOGY ORDERAB LES LAB[facility] [address] [place] [address] documented in this encounter Visit Diagnoses Diagnosis Screening for malignant neoplasm of cervix- Primary Screening for malignant neoplasm of the cervix documented in this encounter
--- NOTE | 2023-09-07 14:30 | XCELERA ---
[id number] \\[id number]
--- NOTE | 2023-09-07 19:48 | Discharge Summary ---
Date of Service September 07, 2023 Admission HPI Per Admitting Provider 47 y/o female with a PMHx of paroxysmal a fib not on rate control or anticoagulation. Patient consumed a significant amount of caffeine today and began having palpitations. She tried holding her breath which has helped in the past, but palpitations continued prompting her presentation to the ED. Patient was found to be in a fib with RVR with rates in the 170s-190s. Given dilt push 25 mg x 2 and started on dilt gtt. Admission called for further management of a fib with RVR. Upon my interview patient reports continued palpitations, but less notable than at presentation. Rates in the 100s-140s. No CP, SOB, nausea, vomiting, diarrhea, constipation, calf pain, abdominal pain. Did have dizziness when rates were extremely high. This has resolved with better rate control. Patient has been in the a fib with RVR in the past about 8 years ago. Believes this was triggered by stress/caffeine. She was not started on medication as symptoms resolved. She has had a few episodes when waking from sleep where her heart is transiently racing. These have previously resolved with breath holding. Principal Diagnosis Paroxysmal atrial fibrillation with rapid ventricular rate Discharge Exam PHYSICAL EXAMINATION Last 24h vital signs reviewed, see documentation in flowsheet General: comfortable appearing, no distress HEENT: Normocephalic, atraumatic, pupils round and equal, sclerae anicteric, no conjunctival injection, moist mucus membranes Lungs: Normal respiratory effort. Clear to auscultation bilaterally. No RRW Heart: Regular rate and rhythm, no murmurs. No JVD Abdomen: nondistended. Extremities: Warm, dry, well-perfused. No extremity edema. Neuro: Alert and oriented x 4, face symmetric, moves 4 extremities well Psych: Normal affect and behavior Discharge Data Allergies Allergy/AdvReac Type Severity Reaction Status Date / Time No Known Allergies Allergy Verified 08/22/19 11:48 Consultations 09/06/23 20:44 ED Decision to Admit Stat Hospital Course (1) Atrial fibrillation with rapid ventricular response: Plan 47 y/o with history of "lone afib" but no episodes at least seven years. Had a poor night of sleep then drank extra caffeine compared to usual. Later that day had onset of her typical afib symptoms with some palpitations tachycardia lightheadeness. In ED was in rapid afib and was started on diltiazem and heparin drip. She converted to NSR this AM and remained in such throughout today and asymptomatic. TTE was obtained and was normal. She remains low risk for stroke with CHADS score of 1 (given a point only for female sex), no hypertension, no sleep apnea or symptoms of such. TSH was normal. I reviewed her care with her director airport operations Dr. Haq who she last saw in 2017. He recommended continuing "pill in the pocket" strategy to convert her rare episodes of afib and that she would not benefit from daily aspirin at this time. Arranged clinic follow up with him and restarted Rx for metoprolol and flecainide PRN episodes of PAF. Discussed moderation of caffiene intake as well. Total Time Total Time Spent Total Time Spent (In Minutes): I personally spent: 45-minute today on clinical care activities including: reviewing chart notes and vital signs, telemetry reviewing labs reviewing studies discussion with learning consultant(s) examining and counseling the patient and her at bedside writing orders, discharge instructions and prescriptions, arranging follow up documentation Discharge Plan Discharge Items Patient Disposition: Home - Self-Care Reason For Visit: A FIB RVR Discharge Diagnosis: Atrial fibrillation with rapid rate Condition on Discharge: Good Activity: Resume your previous activity Non-emergency contact: Primary Care Provider and Biological Aide Call non-emergency contact if: you have any medication questions and your symptoms worsen Follow-up/Referrals: Paul Haq MD [Physician] - 11/07/23 9:00 am Avani Gilbert [Primary Care Provider] - 09/12/23 1:30 pm (Scheduled with Dr. Gilbert on September 12, 2023 at 1:30 pm) Diet: Regular Addtl Attending Provider Instructions: You were treated for an episode of atrial fibrillation Thyroid (TSH) and other blood tests (blood count, electrolytes) were unremarkable. Your Echo - heart ultrasound - still looks normal Dr. Haq suggested continuing the same strategy of using metoprolol and flecainide as needed for episodes of atrial fibrillation If you develop an episode of afib, you can take metoprolol 50 mg then 2 tabs (300 mg) of flecainide 15-30 minutes later. Often this will terminate the episode. He did not think you would benefit from being on aspirin at this time. He asked you see him in the office to keep following this issue Pending Studies at Discharge: No Stand-Alone Forms: My [facility] [address], Smoking Cessation Medications and DC Order Prescriptions: New flecainide 150 mg tablet 300 mg PO DAILY PRN (Reason: atrial fibrillation) Qty: 14 0RF metoprolol succinate 50 mg tablet extended release 24 hr 50 mg PO DAILY PRN (Reason: atrial fibrillation) Qty: 7 0RF Continued Mirena 20 mcg/24 hours (5 yrs) 52 mg intrauterine device 1 device IU UD Discharge Orders: Discharge Order (Routine); Ordered 09/07/23 Ordered By: Kaitlynn Call Admission Data Admit Date/Time: 09/06/23 21:53 Attending Provider: Kaitlynn Call Admit Provider: Ebony Chavira Primary Care Provider: Avani Gilbert Other Providers: Tayo Little Other Interventions: Discharge Summary Assessment (RN) Last Done: 09/07/23 14:29 Coding Level of Care Code 48537 INP/OBS DISCH >30 MIN Diagnoses Atrial fibrillation with rapid ventricular response I48.91
--- NOTE | 2023-09-08 04:29 | Billing Data ---
Date of Service September 08, 2023 Coding Level of Care Code 73088 INT INP/OBS CARE
== END 2023-09-07 15:45 | disposition home or self-care (01) | DRG 310 ==
LOC: ED 18:44 → EDINP 21:53 → SUATTDRO 21:53 → 4W 22:26
DX: I48.0 Paroxysmal atrial fibrillation